=== PATIENT | female | born 1955 | race Caucasian/White ===

== ENCOUNTER 2024-04-20 09:02 | Outpatient (REF) | payer MEDICARE, SELFPAY ==
--- NOTE | ~2024-04-20 | XR_ITS ---
CLINICAL HISTORY: M25.561 - Pain in right knee 3 view right knee Comparison: None Findings: Status post right knee replacement. Appropriate alignment. No evidence of hardware failure. No fracture or dislocation. No significant loss of joint space, osteophytes, or erosions. No joint effusion. No radiopaque foreign body. IMPRESSION: 1. No acute findings. This document has been electronically signed by: Winter Cordova MD on 04/22/2024 13:19:31
--- NOTE | ~2024-04-20 | XR_ITS ---
CLINICAL HISTORY: M54.50 - Low back pain, unspecified 3 views lumbar spine Comparison: None Findings: Normal alignment. Status post L4 laminectomy, posterior metallic fusion extending from L4 through S1 and interbody fusion at L4-L5. No evidence of hardware failure. Grade 1 anterolisthesis of L3 on L4. There is a fracture of the right 12th rib, most likely chronic. No acute lumbar spine fracture. There are mild degenerative changes. There is mild dextrocurvature of the thoracolumbar junction. Multilevel degenerative disc disease, most pronounced at L1-L2. IMPRESSION: 1. There is straightening of lordosis. This may be postsurgical or could be secondary to muscle spasm. 2. Postsurgical changes at L4 through S1 as above. This document has been electronically signed by: Winter Cordova MD on 04/22/2024 13:41:04
== END 2024-04-20 09:03 | disposition home or self-care (01) ==
LOC: HO.HOSX 09:02
PROVIDERS: PCP Internal Medicine; Visit Provider Orthopaedic Surgery
DX: M25.561 Pain in right knee (principal); M54.50 Low back pain, unspecified; M79.604 Pain in right leg
CPT/HCPCS: 72100; 73562; 99212

== ENCOUNTER 2024-04-20 09:02 | Outpatient (AMB) | payer MEDICARE, SELFPAY ==
--- NOTE | 2024-04-20 09:04 | A.OFFVIS_ITS ---
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 She also reports intermittent discomfort in her right knee after undergoing right total knee replacement surgery in 2019. She denies any locking or giving way. The patient states that at times her right foot will ?go numb?. She also reports intermittent weakness in her right leg. She has done physical therapy which aggravated her symptoms. She has also tried Tylenol and anti-inflammatory medicines which gave her minimal relief. She did undergo low back surgery several years ago. Allergies adhesive tape Allergy (Unknown, Uncoded 12/18/15 00:00) Tree nuts Allergy (Unknown, Uncoded 12/18/15 00:00) Medication List - Last Reconciled 04/20/24 by Monroe Bonilla MD azathioprine mg PO colchicine mg PO duloxetine 120 mg PO DAILY gabapentin 100 mg PO QID PRN lorazepam 1 mg PO TID PRN ondansetron HCl mg PO oxycodone 5 mg PO Q6H PRN pilocarpine HCl mg PO DAILY progesterone micronized 100 mg PO DAILY valacyclovir mg PO 3XD zolpidem 10 mg PO BEDTIME PRN Physical Exam Vital Signs: BMI result Body Mass Index 35.4 Const Other: Well-nourished well-developed very friendly female awake alert and oriented x3 in no acute distress Back/Spine/Pelvis Other: Low back examination shows right-sided paraspinal muscle tenderness, pain with range of motion, positive straight leg raise test on the right at 70 degrees, 4/5 strength with testing of her right hip flexors and knee extensors when compared to 5/5 strength on her left side Extrem Other: Right knee examination shows that the surgical incision is well healed, no erythema, full active extension and flexion to 120 degrees, her patella tracks well Results Reviewed Results Reviewed: X-rays of the patient's right knee taken today show a total knee arthroplasty in good position with no signs of loosening, no acute bony abnormalities X-rays of the patient's lumbar spine taken today show surgical hardware extending from level L4 to S1 due to prior fusion, moderate degenerative disc disease cephalad to the fusion, no acute bony abnormalities Assessment & Plan Assessment & Plan (1) Right knee pain: Code(s): M25.561 - Pain in right knee Category: Medical (2) Low back pain: Code(s): M54.50 - Low back pain, unspecified Category: Medical (3) Low back pain radiating to right leg: Code(s): M54.50 - Low back pain, unspecified; M79.604 - Pain in right leg Category: Medical Plan Ms. Fletcher presents with progressively worsening low back pain which radiates down her right leg as well as associated right leg weakness possibly due to lumbar stenosis or a disc herniation. Thus, I will send the patient for an MRI of her lumbar spine for further evaluation. I will contact her by phone once the MRI is completed. She will call me prior to that time should her symptoms worsen any way. Feel free to call me at time should questions regarding her orthopedic management arise. I spent 22 minutes in reviewing the patient's records and imaging studies, seeing the patient and documenting in the medical record. Orders: Orders XR knee RT 3V Today M25.561 - Pain in right knee XR lumbar spine 2-3V Today M54.50 - Low back pain, unspecified MR lumbar spine wo con Today M54.50 - Low back pain, unspecified, M79.604 - Pain in right leg Coding Level of Care Code Est Pt Level 3 (10139) Complex EM visit Add On G2211 Diagnoses Right knee pain M25.561 Low back pain M54.50 Low back pain radiating to right leg M54.50; M79.604
[2024-04-20 09:06] VITALS: BMI 35.4
--- OUTSIDE RECORDS SUMMARY | 2024-04-20 09:53 | XMS_ITS | Patient Health Record ---
[facility] Address [address] [place] [address] Care Team Providers Care Home Therapy Teacher Name Role Phone Colt Reilly MD Primary Care Provider Ramiro Jenkins Unavailable [phone] Allergies Allergen (clinical drug ingredient) Drug/Non Drug Allergy documented on EMR Reaction Allergy Type Onset Date Status Adhesive Tape Rash Drug Allergy Act rocael Reason For Referral No Information Medications Medication SIG (Take, Route, Fr equency, Duration) Notes Start Date End Date Status Cymbalta Active Doxycycline Active Ambien Active Naltrexone Not-Takin g Protonix 40 MG 1 tablet Orally twice a day Not-Taking Keflex 500 MG 1 capsule Orally rudy ry 12 hrs for 7 days 03/14/2015 Not-Taking Lomotil Not-Taking Wellbutrin Active Immunizations Vaccine Route Administration Date Status Comme nts COVID-19 Pfizer BioNTech Vaccine Unknown 06/01/2020 Administered 1st 05/01/2020 Social History Tobacco Use: Social History Observation Description Date Details (start date - stop date) Never Smoker NA - NA Tobacco Use/Smoking Question Answer Notes Are you a: nonsmoker Alcohol Screen Question Answer Notes Did you have a drink containing alcohol in the p ast year? No Points 0 Interpretation Negative Tobacco use other than smoking: Question Answer Notes Are you an other tobacco user? No Plan Of Treatment Pending Test Test Name Order Date X ray : Foot, right 3V 04/02/2023 72079-Qrow Destruction, -04/11/2015 59538-Xwvr Destruction, -07/03/2020 53626-Aeqh Destruction, -08/08/2020 83275-Pste Destruction, -08/31/2020 02424-Iqky Destruction, -09/28/2020 13981 I&D ABSCESS- SIMPLE,SINGLE 024 55245- Biopsy of skin lesion 03/14/2015 25822- Biopsy of skin lesion 03/21/2015 Insurance Providers Payer Name Payer Address Payer Phone Subscriber Number Group Number Insured Name Patient Relationship to Insured Coverage Start Date Coverage End Date Medicare National [employer] [address] [place] [address] [id number] Sue Resendiz Self - patient is the insured [employer] [address] [place] [address] [phone] [id number] Sue Resendiz Self - patient is the insured Medical (General) History Medical History History ICD Code Anxiety Back,Hip,and Knee pain Broken bones Depression Kidney stones Sciatica Warts Measles Mumps Chicken pox Joint implants/screws Behcets Disease - autoimmune joint Surgical History Surgery Date(Month/Year) ileostomy 03/23/2014 hysterectomy 05/2002 gall bladder 06/1999 Shakeel 1977 bunionectomy 1975 mutiple cyst removals
--- OUTSIDE RECORDS SUMMARY | 2024-04-20 09:54 | XMS_ITS | Clinical Summary ---
Author Organization [address] [facility] Address [address] [place] [address] Phone Care Team Providers Care Chair Car Driver Name Role Phone Colt Reilly MD Primary Care Provider [phone] Allergies No known active allergies Medications zolpidem (AMBIEN) 10 mg tablet Take 1 tablet (10 mg total) by mouth at bedtime as needed. at bedtime for sleep 02/16/2024 Active progesterone (PROMETRIUM) 100 mg capsule Take 1 capsule (100 mg total) by mouth 1 (one) time each day. 12/30/2023 Active pilocarpine (SALAGEN) 7.5 mg tablet 01/22/2024 Active ondansetron (ZOFRAN) 8 mg tablet as needed 05/16/2011 Active multivitamin (multivitamin-i fara-minerals) tablet Take 1 tablet by mouth daily. Active LORazepam (ATIVAN) 1 mg tablet Take 1 tablet (1 mg total) by mouth 3 (three) times a day if needed. for anxiety 01/20/2024 Active gabapentin (NEURONTIN) 100 mg capsule Take 1 capsule (100 mg total) by mouth 4 (four) times a day if needed. 01/21/2024 Active DULoxetine (CYMBALTA) [address] capsule Take 2 capsules (120 mg total) by mouth 1 (one) time each day. 01/22/2024 Active colchicine (COLCRYS) 0.6 mg tablet 01/15/2024 Active apremilast (Otezla) 30 mg tablet Take 30 mg by mouth. 02/05/2024 Active acetaminophen (TYLENOL) 325 mg tablet TAKE 1 TO 2 TABLETS EVERY 6 HOURS NEEDED.Take PRN pain 04/04/2014 Active Active Problems Problem Noted Date Diagnosed Date Finding of above normal blood pressure Severe obesity (BMI 35.0-39.9) with comorbidity 02/23/2024 Carpal tunnel syndrome of left wrist 02/23/2024 Trigger ring finger of left hand 02/23/2024 Idiopathic acute pancreatitis without infection or necrosis 01/05/2024 Status post ileostomy 03/23/2023 Supraventricular tachycardia 03/23/2023 Primary osteoarthritis involving multiple joints 11/07/2022 Sicca syndrome 11/07/2022 Essential hypertension 05/11/2020 Depression 02/27/2020 Perforated viscus 01/28/2020 Overview (02/23/2024): Hx of total colectomy with end ileostomy, s/p rectal stump perforation following flex sig on 01/27/20 for rectal stump decompression. 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; chronic mucosal ulceration tx'd with longstanding azathioprine Colostomy dysfunction 03/20/2014 Intestinal obstruction 02/22/2014 Overview (02/23/2024): Unspecified Intestinal Obstruction Encounters Date Type Department Care Team Description 03/15/2024 3:45 PM EST Office Visit Orthopedic Surgery [address] [address] Kathe King PA Arthritis of carpometacarpal (CMC) joint of right thumb (Primary Dx) 02/23/2024 2:15 PM EST Consult Orthopedic Surgery [address] [address] Rosalina Tom MD Trigger ring finger of left hand (Primary Dx); Carpal tunnel syndrome of left wrist from Last 3 Months Immunizations Name Administration Dates Next Due Pfizer SARS-CoV-2 COVID-19, mRNA, LNP-S, preservative free 02/19/2021,05/22/2020,05/01/2020 Surgical History Surgery Date Site/Laterality Comments HYSTERECTOMY 2009 PROCEDURE: HISTORICAL HYSTERECTOMY TOTAL KNEE ARTHROPLASTY 2011 PROCEDURE: NC ARTHRP KNE CONDYLE&PLATU MEDIAL&LAT COMPARTMENTS CHOLECYSTECTOMY 2005 PROCEDURE: HISTORICAL CHOLECYSTECTOMY APPENDECTOMY 1964 PROCEDURE: HISTORICAL APPENDECTOMY BACK SURGERY 2009 PROCEDURE: HISTORICAL BACK SURGERY; COMMENT: lumbar spinal fusion, L4-L5 OTHER SURGICAL HISTORY PROCEDURE: ---- OTHER ----; COMMENT: ileostomy x 4 BYPASS GRAFT PROCEDURE: NC AMPUTATION TOE METATARSOPHALANGEAL JOINT Medical History Medical History Date Comments Anxiety 02/27/2020 DX:Anxiety Depression 02/27/2020 DX:Depression Behcet's disease ([facility]/HCC) 02/27/2020 DX:Be hcet's disease ([facility]) Insomnia 02/27/2020 DX:Insomnia SVT (supraventricular tachyc ardia) ([facility]) 02/27/2020 DX:SVT (supraventricular tachycardia) ([facility]) Palpitations 02/27/2020 DX:Palpitations Dyspnea 02/27/2020 DX:Dyspnea Family History Medical History Relation Name Comments Hypertension Brother Coronary artery disease Father late r in life Diabetes Father Hypertension Mother Alcohol abuse Sister Hypertension Sister Relation Name Status Comments Brother Father Mother Sister Social History Tobacco Use Types Packs/Day Years Used Date Smoking Tobacco: Never Smokeless Tobacco: Never Alcohol Use Standard Drinks/Week Comments No 0 (1 standard drink = 0.6 oz pur e alcohol) Comments Unknown Sex and Gender Information Value Date Recorded Sex Assigned at Female 02/22/2024 8:21 PM EST Legal Sex Female 10:32 AM EST Gender Identity Female 02/22/2024 8:21 PM EST Sexual Orientation Not on file Obstetrics History Last Filed Vital Signs Vital Sign Reading Time Taken Comments Blood Pressure 162/90 12/23/2021 12:59 PM EST Si tting R Arm Pulse 80 12/23/2021 12:59 PM EST Temperature - - Respiratory Rate - - Oxygen Saturation - - Inhaled Oxygen Concentration - - Weight 86.2 kg (190 lb) 02/23/2024 2:11 PM EST Height 160 cm (5' 3 ) 02/23/2024 2:11 PM EST Body Mass Index 33.66 02/23/2024 2:11 PM EST Plan of Treatment Upcoming Encounters Date Type Department Care Team (Late st Contact Info) Description 05/23/2024 11:45 AM EDT Office Visit Orthopedic Surgery - [place] [address] [place] [address] Rosalina Tom MD [address] [facility] [address] [place] [address] Health Maintenance Due Date Last Done Comments Breast Cancer Screening 1955 DTaP,Tdap,and Td Vaccines (1 - Tdap) 1973 Pneumococcal Vaccine: 50+ Years (1 of 1 - PCV) 2004 Zoster Vaccines (1 of 2) 2004 RSV Immunization Patients 60+ Years Old (1 - Risk 60-74 years 1-dose series) 2014 Colorectal Cancer Screening: Colonoscopy 01/14/2022 Depression Screening 01/14/2022 Falls Risk Assessment 01/14/2022 Osteoporosis Screening (Bone Density Screening) 01/14/2022 Social Influencers of Health Screening 01/14/2022 Medicare Annual Wellness Visit 03/28/2023 03/28/2022 COVID-19 Vaccine ( season) 2023 03/02/2023, 11/11/2021, 02/19/2021, Additional history exists Hypertension/CHF/CAD Annual BMP Blood Test 03/08/2025 03/08/2024, 01/21/2024, 01/06/2024, Additional history exists Cholesterol Screening (Lipid Panel) 01/04/2029 01/05/2024 Hepatitis C Screening Completed 11/05/2022 Influenza Vaccine Completed 12/31/2023, , 12/02/2021, Additional history exists HIB Vaccines Aged Out No longer eligi ble based on patient's age to complete this topic HPV Vaccines Aged Out No longer eligi ble based on patient's age to complete this topic Hepatitis A Vaccines Aged Out No long er eligible based on patient's age to complete this topic Hepatitis B Vaccines Aged Out No long er eligible based on patient's age to complete this topic IPV Vaccines Aged Out No longer eligi ble based on patient's age to complete this topic MMR Vaccines Aged Out No longer eligi ble based on patient's age to complete this topic Meningococcal ACWY Vaccine Aged Out N o longer eligible based on patient's age to complete this topic Meningococcal B Vacine Aged Out No lo nger eligible based on patient's age to complete this topic RSV Immunization Patients Under 20 months Aged Out No longer eligible based on patient's age to complete this topic Varicella Vaccines Aged Out No longer eligible based on patient's age to complete this topic Procedures Procedure Name Priority Date/Time Associated Diagnosis Comments NC ARTHROCENTESIS/ASPI RATION/INJECTION SMALL JOINT/BURSA WO U/S GUIDANCE Routine 03/15/2024 3:45 PM EST Arthritis of carpometacarpal (CMC) joint of right thumb NC INJECTION SINGLE TENDON SHEATH OR LIGAMENT APONEUROSIS Routine 02/23/2024 2:15 PM EST Trigger ring finger of left hand from Last 3 Months Results * NC ARTHROCENTESIS/ASPIRATION/INJECTION SMALL JOINT/BURSA WO U/S GUIDANCE (03/15/2024 3:45 PM EST) Narrative Kathe King PA - 03/15/2024 3:45 PM EST ERNA Harris ? 03/15/2024 ??4:18 PM Hand / UE Inj/Asp: R thumb CMC for osteoarthritis Indications: pain Details: 25 G needle, dorsal approach Medications: 40 mg triamcinolone acetonide 40 mg/mL; 0.5 mL lidocaine 1 % Informed Consent: ??Laterality: ??Right ??Relevant images/test results available and reviewed: yes ?Health status cleared: ??Yes ??Procedure/treatment, purpose, treatment alternatives, risks/potential complications and benefits explained: yes ?Risk/complications/benefits details: ??Risks of infection, thinning of the skin, skin discoloration discussed. ??Discussed the possibility of increased pain, mild redness and swelling at injection site. ??Discussed uncommon side effect of facial flushing after cortisone injection. ?? Patient may use ice, Tylenol or ibuprofen if they can take it. ??Benefits pain management ??Patient questions answered: yes ?Patient agrees, verbalizes understanding, and wants to proceed: yes ?Consent given by: ??Patient ??Informed consent discussion completed by Physician/HILDA with patient: ?? Verbal ??Pre-procedure timeout performed: yes ?? us Kathe UMANZOR IN CLINIC/BEDSIDE ORDERABLES Final Result * NC INJECTION SINGLE TENDON SHEATH OR LIGAMENT APONEUROSIS (02/23/2024 2:15 PM EST) Rosalina Kotahri MD - 02/23/2024 2:15 PM EST Rosalina Tom MD ? 02/23/2024 ??5:50 PM Hand / UE Inj/Asp: L ring A1 for trigger finger Indications: pain Details: 27 G needle, volar approach Medications: 40 mg triamcinolone acetonide 40 mg/mL Outcome: tolerated well, no immediate complications Site was prepped in standard fashion using alcohol swab, sterile technique was used to perform the injection, the patient tolerated the procedure well and a band-aid dressing was applied Informed Consent: ??Laterality: ??Left ??Relevant images/test results available and reviewed: yes ?Health status cleared: ??Yes ??Procedure/treatment, purpose, treatment alternatives, risks/potential complications and benefits explained: yes ?Risk/complications/benefits details: ??Risk/complications/benefits details: ??Risks and benefits of corticosteroid injection were discussed, including risk of pain, bleeding, infection, tissue attenuation, tendon rupture, changes in skin color, and injury to surrounding structures such as arteries, veins and nerves. We also discussed the patient may develop worsening pain for a few days before having improvement in their symptoms. ??Patient questions answered: yes ?Patient agrees, verbalizes understanding, and wants to proceed: yes ?Consent given by: ??Patient ??Informed consent discussion completed by Physician/HILDA with patient: ?? Verbal ??Pre-procedure timeout performed: yes ?? us Rosalina Tom MD IN CLINIC/BEDSIDE ORDERABLES Final Result from Last 3 Months Insurance MEDICARE [facility] Care Teams Chair Car Driver Relationship Specialty Start Date End Date Colt Reilly MD [address] [place] [address] PCP - General Internal Medicine 02/27/20
--- OUTSIDE RECORDS SUMMARY | 2024-04-20 09:54 | XMS_ITS ---
Author Organization [facility] Address [address] [place] [address] Care Team Providers Care Cleaner Carpet And Upholstery Name Role Phone Colt Reilly MD Primary Care Provider Unava ilRamiro Zurita Unavailable [phone] REASON FOR VISIT Freibergs disease Encounters Encounter Location Date Provider Diagnosis [facility] [address] [place] [address] 04/02/2023 Ramiro Allen Plan Of Treatment No Information Progress Notes * Sue ADAMS MDOB:[birth year] (67 yo F)Acc No.[id number]:04/02/2023 Patient:?Sue Adams :1955???Age:67 Y???Sex:Female Address:[address] [place] [address], [id number] * true * Date:? Generated for Printi ng/Fadeang/eTransmitting on:?04/20/2024 09:54 AM EST
--- OUTSIDE RECORDS SUMMARY | 2024-04-20 09:54 | XMS_ITS ---
[facility] Address [address] [place] [address] Care Team Providers Care Motel Manager Name Role Phone Colt Reilly MD Primary Care Provider Ramiro Jenkins Unavailable [phone] Allergies Allergen (clinical drug ingredient) Drug/Non Drug Allergy documented on EMR Reaction Allergy Type Onset Date Status Adhesive Tape Rash Drug Allergy Act rocael REASON FOR VISIT Painful Toe(s), Possible Infection Medications Medication SIG (Take, Route, Fr equency, Duration) Notes Start Date End Date Status Cymbalta Active Doxycycline Active Naltrexone Not-Takin g Keflex 500 MG 1 capsule Orally rudy ry 12 hrs for 7 days 03/14/2015 Not-Taking Lomotil Not-Taking Ambien Active Protonix 40 MG 1 tablet Orally twice a day Not-Taking Wellbutrin Active Social History Tobacco Use: Social History Observation [...] Are you an other tobacco user? No Vital Signs Height 5ft 4in in 04/02/2023 Weight 185 lbs 04/02/2023 BMI 31.75 kg/m2 04/02/2023 Procedures Procedure Date Ordered Date Performed Result Body Sit e 73748 I&D ABSCESS- SIMPLE,SINGLE 04/02/2023 N/A Encounters Encounter Location Date Provider Diagnosis [facility] [address] [place] [address] 04/02/2023 Ramiro Allen Pain in right toe(s) M79.674 ; Other hammer toe(s) (acquired), right foot M20.41 ; Arthritis of joint of lesser toe, right M19.071 and Abscess of toe, right L02.611 Assessments Encounter Date Diagnosis (ICD Code) Assessment Notes Treatment Notes Treatment Clinical Notes Section Notes 04/02/2023 Pain in right toe(s) (ICD-10 - M79.674) 04/02/2023 Other hammer toe(s) (acquired), right foot (ICD-10 - M20.41) 04/02/2023 Arthritis of joint of lesser toe, right (ICD-10 - M19.071) 04/02/2023 Abscess of toe, right (ICD-10 - L02.611) Patient Educated with: WOUND CARE INSTRUCTIONS.p df (WOUND CARE INSTRUCTIONS.p df) Plan Of Treatment Treatment Notes Assessment Notes Abscess of toe, right Patient Educated w ith: WOUND CARE INSTRUCTIONS.pdf (WOUND CARE INSTRUCTIONS.pdf) Pending Test Test Name Order Date X ray : Foot, right 3V 04/02/2023 79516 I&D ABSCESS- SIMPLE,SINGLE 024 Next Appt Details Follow Up: prn, Reason: Procedure Notes * Category Sub-Category Detail Notes I&D nail abscess Location Lateral nail levon rder , T6 Procedure Performed incision a nd drainage of Single Nail Abscess with use of sterile nail nipper/316 blade. Approximately ( 0.1 ) cc purulent fluid material was drained. The infected devitalized soft tissue was curettaged to healthy bleeding bed. Any affected nail portion was removed to the eponychium . Any evidence of granuloma was also removed at this time. No underlying bone was visualized. There was minimal bleeding as hemostasis was achieved through the temporary use of either a digital tournaquet or the aforementioned local with epinephrine. An application of sterile Bacitracin dressing was performed. Local wound care instructions were discussed and dispensed. Recommended Tylenol or Motrin for pain/discomfort (72600) Type Single, Abscess Anesthesia 3cc of 1 percent Lid ocaine Plain local anesthesic utilizing aseptic technique Progress Notes * Sue ADAMS MDOB:[birth year] (68 yo F)Acc No.[id number]:04/02/2023 Progress Note Patient:?Sue ADAMS Provider:?Ramiro Allen DPM :1955???Age:67 Y???Sex:Female D ate:04/02/2023 Address:[address] [place] [address] [place], [id number] Pcp:Colt Reilly MD Subjective: * Chief Complaints: * ???Painful Toe(s)Possible In fection * HPI: ???Toe pain:?Nature:?tenderness.?Location:?Right foot.?Duration:?several days.?Course:?worse.?Aggravated by:?any pressure, shoes.?Treatments:?rest/alter normal daily activity, change in shoes.? * ROS:?General/Constitutional:?Nausea?denies.?Vomiting?denies.?Hunger Thirst?admits.?Loss appetite?admits.?Chills?denies.?Fatigue?admits.?Fever?denies.?Night Sweats?admits.?Unexplained weight loss?denies.?Ophthalmologic:?Blurred vision?denies.?Red eye?denies.?HEENTM:?Dentures?denies.?Dizziness?denies.?Glasses/contacts?admits.?Retinopathy?de nies.?Blurred/double vision?admits.?TMJ?denies.?Discharge/drainage?denies.?Implants?admits.?Hard of hearing denies.?Difficulty chewing/swallowing/speaking?denies.?Nose bleeds?denies.?Sore mouth?denies.?Swollen glands?denies.?Respiratory:?On Oxygen?denies.?Pneumonia/pleurisy?denies.?Bronchitis?denies.?Emphysema?denies.?C oughing?denies.?Cough blood?denies.?Shortness of breath?denies.?Wheezing?denies.?Cardiovascular:?Pacemaker?denies.?MVP?denies.?WPW?denies.?CHF?denies.?Heart attack?denies.?Septal defect?denies.?Rapid beat?denies.?Chest pain ?denies.?Atrial Fib.?denies.?Murmur/Palpitations?denies.?Gastrointestinal:?Hemorrhoids?denies.?Stomach/Abdominal pain?admits.?Dark blood stool?denies.?Irritable bowel ?admits.?Constipation?denies.?Diarrhea?denies.?Vomiting?denies.?Hematology:?Swelling?denies.?Bruising?denies.?Bleeding problem?denies.?Genitourinary:?Blood urine?denies.?Frequent/Painfu/urination/bladder control?denies.?Kidney stones?denies.?Infection (UTI)?denies.?Nephropathy?denies.?Musculoskeletal:?Hammertoes?admits.?Bunions?denies.?Scoliosis/kyphosis?denies.?Muscle cramps / walking?denies.?Generalized aches and pains?denies.?Weakness?denies.?Integ.:?[place]ron?denies.?Scars?admits.?Corns/calluses?admits.?Ingrown nails?admits.?Painful nails?admits.?Rashes?denies.?Neurologic:?Difficulty sleeping?admits.?Bipolar?denies.?Brain disorder?denies.?Balance trouble?denies.?Confusion?denies.?Fainting/blackouts?denies.?Headache?denies.?Tr emors?denies.? * Medical History:? * Surgical History:?ileostomy 03/23/2014hysterectomy 05/2002gall bladder 06/1999Fribergs 1978bunionectomy 1975mutiple cyst removals * Hospitalization/Major Diagno stic Procedure:?No Hospitalization History. * Family History:?Mother: dece ased, kidney/liver disease, diagnosed with Family history of arthritis, Unspecified essential hypertension.?Father: , diagnosed with Family history of arthritis, Diabetic - NIDDM, Unspecified essential hypertension, Unspecified heart disease.?Daughter(s): alive.?Son(s): .?Maternal Grand Mother: , stroke.?Siblings: alive, cancer, high blood pressure.?Spouse: alive.?1 son(s) , 1 daughter(s) . .? * Social History:?Tobacco Use:?Tobacco Use/Smoking?Are you a:?nonsmoker ?Tobacco use other than smoking?Are you an other tobacco user??No ???Drugs/Alcohol:?Drugs?Have you used drugs other than those for medical reasons in the past 12 months??No ?Alcohol Screen?Did you have a drink containing alcohol in the past year??No ?Points?0 ?Interpretation?Negative ???Miscellaneous:?Caffeine: no. ?Children: yes. ?Exercise: no. ?Marital status: . ?Occupation: Disabled. * Medications:?TakingAmbien Cy mbalta Doxycycline Wellbutrin Taking Ambien Taking Cymbalta Taking Doxycycline Taking Wellbutrin Not-Taking/PRNKeflex 500 MG Capsule 1 capsule Orally every 12 hrs Lomotil Naltrexone Protonix 40 MG Tablet Delayed Release 1 tablet Orally twice a day Medication List reviewed and reconciled with the patientNot-Taking/PRN Keflex 500 MG Capsule 1 capsule Orally every 12 hrs Not-Taking/PRN Lomotil Not-Taking/PRN Naltrexone Not-Taking/PRN Protonix 40 MG Tablet Delayed Release 1 tablet Orally twice a day Medication List reviewed and reconciled with the patient * Allergies:?Adhesive Tape: Ra wilcox[Allergies Verified] Objective: * Vitals:?Ht: 5ft 4in, Wt:185, BMI:31.75, Shoe size: 8, Ht-cm: 162.56 cm, Wt-k.91 kg. * Examination: ???Abscess/infected nail: ?INSPECTION?Reveals nail incurvation, pain on palpation, groove laceration, inflammation, malodor, localized cellulitis, and purulent abscess with pre- operative size of approximately ( 1-2 ) mm square without exposed bone , Lateral nail border , T6.?Orthopedic: ?MUSCLE STRENGTH:?5/5 all groups in a symmetrical fashion, B/L.?DIGITAL DEFORMITIES:?Digital contracture, PIPJ, T6, reducible with WB, or to push-up test, no over, nor underlapping , Reveals pain/swelling/redness/enlargement of PIPJ, T6.?FOOTWEAR:? shoe gear properties exacerbate patients foot/toe deformity.?X-Rays - IMAGING REPORT: ?Clinical Indication(s):? Evaluate Biomechanical Deformity.?Views:? 3 views of Foot, AP, LO, MO, RIGHT.?Findings:? normal bone and soft tissue density consistent for patients age and sex.?Digits:? show asymmetrical joint space narrowing at the PIPJ consistent with clinical finding of hammertoe deformity.?Fracture:? Negative fractures identified.?Dermatologic: ?SKIN FINDINGS:?Skin exam reveals normal texture, elasticity, and turgor. There are no masses. The interspaces are clear.?Vascular: ?DP PULSES (B):?3/4, B/L.?PT PULSES (B):?3/4, B/L.?CAPILLARY FILL TIME:?immediate, all digits, B/L.?TROPHIC CONDITION-TEXTURE/ELASTICITY/TURGOR/HAIR GROWTH (B):?normal, B/L.?TEMPERTURE GRADIENT (C):?warm to cool, proximal to distal, B/L.?PIGMENTATION:?normal, B/L.?EDEMA (C):?absent, B/L.?Neuroma Pain: ?PALPATION:?No interspace pain noted on palpation.?Neurological: ?SENSORY:?Neurological exam reveals intact sensorium, pain sensation normal, vibration sensation intact, pinprick sensation is normal in the lower extremities, Pt denies, anesthesia, burning, paresthesia, tingling, B/L.?DEEP TENDON REFLEXES:?Achilles, 2/4, B/L.?General Examination: ?GENERAL APPEARANCE:?Reveals a pleasant, alert, well nourished, well- developed, well hydrated individual, who demonstrates proper attention to hygiene/body habitus, and is in no acute distress, Pt serves as own historian for office visit today , Denies fever, chills, malaise, lymphadenopathy.?ORIENTED:?person, place, and time.? Assessment: * Assessment: 1.?Pain in right toe(s) - M7 9.674 (Primary)???2.?Other hammer toe(s) (acquired), right foot - M20.41???Specify :Acute problem, Complicated w/ Multiple Tx Options(4),Dx New problem, Prognosis Uncertain (4)???3.?Arthritis of joint of lesser toe, right - M19.071???4.?Abscess of toe, right - L02.611??? Plan: * Treatment: 2.?Abscess of toe, right?Procedure: 60591 I&D ABSCESS- SIMPLE,SINGLE Notes: Patient Educated with: WOUND CARE INSTRUCTIONS.pdf (WOUND CARE INSTRUCTIONS.pdf)?? * Procedures:?I&D nail abscess:?Type?Single, Abscess.?Anesthesia?3cc of 1 percent Lidocaine Plain local anesthesic utilizing aseptic technique.?Location?Lateral nail border?,?T6.?Procedure?Performed incision and drainage of Single Nail Abscess with use of sterile nail nipper/316 blade. Approximately ( 0.1 ) cc purulent fluid material was drained. The infected devitalized soft tissue was curettaged to healthy bleeding bed. Any affected nail portion was removed to the eponychium . Any evidence of granuloma was also removed at this time. No underlying bone was visualized. There was minimal bleeding as hemostasis was achieved through the temporary use of either a digital tournaquet or the aforementioned local with epinephrine. An application of sterile Bacitracin dressing was performed. Local wound care instructions were discussed and dispensed. Recommended Tylenol or Motrin for pain/discomfort (65051).? * Procedure Codes:?94283 DRAIN AGE OF SKIN ABSCESS, Modifiers: T6 07532 X-RAY EXAM OF RIGHT FOOT 3V, Modifiers: 26 , RT * Preventive Medicine:? ??Counseling:?Discussion:?-14: Office or other outpatient visit for the evaluation and management of an established patient, which required a medically appropriate history and/or examination and MODERATE level of DECISION MAKING for: 1 OR MORE CHRONIC PROBLEM(S) THATS WORSENING, 2 STABLE CHRONIC PROBLEMS, A NEWLY DIAGNOSED PROBLEM WITH UNCERTAIN PROGNOSIS, AN ACUTE COMPLICATED INJURY WITH MULTIPLE TREATMENT OPTIONS, OR AN ACUTE PROBLEM WITH ACCOMPANYING SYSTEMIC SYMPTOMS, THAT POSE(S) A MODERATE RISK OF MORBIDITY. THIS CONDITION MAY ALSO INCLUDE RX DRUG MANAGEMENT, OR A DECISON FOR MINOR SURGERY. The visit on the day of the encounter encompassed interpreting the data and educating the patient as to the nature of their condition, treatment options available according to their individual PMH, meds, allergies, and overall health/living conditions, as well as any potential risks or complications that may occur from a failure to adhere to, and participate in, the recommended course of therapy. The discussion included a complete verbal, and/or written explanation of the examination results, any x-rays taken, the proposed diagnosis, and outline of the treatment plan. A schedule for future care needs was also explained. The patient verbalized an understanding of the instructions at this time and agreed to be an active participant in their treatment. If the patient should think of any questions or concerns after the visit, I have encouraged the patient to call the office.?Digital Surgery:?Digital surgery was discussed with the patient, including the risks of surgery(below), vs not having surgery (persistent pain, deformity, risk for skin ulceration/infection, loss of toe), the potential surg complications, the anesthesia, and the usual post-op course. No guarentees were given. We discussed the potential procedure complications including, but not limited to: pain, swelling, bleeding, scarring, numbness, infection, delayed/non healing, floppy/unstable/shorthened toe, recurrence, failure of the procedure, overcorrection leading to plantarflexed/downward positioned toe, recurrence, need for further surgery, as well as the possibility for loss of the toe itself. We discussed the use of local anesthesia, and the usual post-op course for healing. No guarentees were given. The patient verbally indicated a full understanding of the above conversation, and any other of their questions were answered to their satisfaction. Alternatives to the procedure were also discussed, including conservative care. I also discussed the usual post-operative course and gave no guarantees regarding outcome.?Digital Treatment:?HT- I explained to the patient the possible etiologies of Hammertoes, including genetics/foot type/shoegear/activity level/exercise routine and the risks/benefits of all the different treatment options for their pain including: No treatment at all, Rest, Ice, New/supportive/wider/deeper Shoegear, Digital Padding/Strapping/Taping/Bracing/Gel protective sleeves, Foot/Ankle AFO Bracing, Stretching exercises, Deep Tissue Massage, Arch support/shoe inserts with splay metatarsal padding, and Custom orthoses. I insisted that any digital devices be removed daily and not worn overnight for safety. The patient is to carefully examine the toes daily for any skin irritation while using any splinting or padding device. The advantages and disadvantages of each option were discussed and the patients questions re: shoegear, padding, custom vs prefabricated inserts, activity level, and consistency in home treatment regimens for optimal success were answered to their verbally confirmed satisfaction.?Shoe Gear Counseling:?The patient and I reviewed the types of shoes they should be wearing. My recommendation included obtaining a well-fitted shoe with a good supportive, non-foldable nor twistable sole, plenty of toe/room for the forefoot, and proper arch support. Based on todays examination, I recommended the patient look for new shoes, by having their feet professionally measured. We discussed that generally the best time of the day for a shoe fitting is the afternoon. Different shoes types and brands to best match the patients occupation and vocation were discussed. Specific brand selection will be up to the patient, their individual foot condition/deformities, and fit. The patient and I reviewed the standard new shoe break in period by wearing them for a few hours a day while checking for redness or sores as wear time is increased. The patient verbally confirmed to understanding the information discussed.? ??Screening/Special Tests:?Fall Risk?Screening:?No falls in the past year ?FALLS: Screening for Future Fall Risk?Have you had any falls with injury in the past year??No * Follow Up:?prn * Images: * Sign off status: Completed true * Provider:?Ramiro Allen DPM Date:?2023 Generated for Kaye hou/Andre/Alejandro on:?04/20/2024 09:54 AM EST History and Physical Notes * HPI (History of Present Illness) Category Sub-Category Detail Notes Category Not es Toe pain Nature: tenderness Location: Right foot Duration: several days Course: worse Aggravated by: any pressure, shoes Treatments: rest/alter normal da abdelrahman activity, change in shoes Examination Category Sub-Category Detail Notes Category Not es Neuroma Pain PALPATION: No interspace pain noted on palpation Neurological SENSORY: Neurological exa m reveals intact sensorium, pain sensation normal, vibration sensation intact, pinprick sensation is normal in the lower extremities, Pt denies, anesthesia, burning, paresthesia, tingling, B/L DEEP TENDON REFLEXES: Achilles, 2/4, B/L Dermatologic SKIN FINDINGS: Skin exam reveal s normal texture, elasticity, and turgor. There are no masses. The interspaces are clear Orthopedic FOOTWEAR: shoe gear proper ties exacerbate patients foot/toe deformity DIGITAL DEFORMITIES: Digital contracture , PIPJ, T6, reducible with WB, or to push-up test, no over, nor underlapping , Reveals pain/swelling/redness/enlargement of PIPJ, T6 MUSCLE STRENGTH: 5/5 all groups in a symmetrical fashion, B/L General Examination GENERAL APPEARANCE: Reveals a pleasant, alert, well nourished, well-developed, well hydrated individual, who demonstrates proper attention to hygiene/body habitus, and is in no acute distress, Pt serves as own historian for office visit today , Denies fever, chills, malaise, lymphadenopathy ORIENTED: person, place, and t rebecca Vascular DP PULSES (B): 3/4, B/L PT PULSES (B): 3/4, B/L CAPILLARY FILL TIME: immediate, all digi ts, B/L TEMPERTURE GRADIENT (C): warm to cool, p roximal to distal, B/L TROPHIC CONDITION-TEXTURE/ELASTICITY/TURGOR/HAIR GROWTH (B): normal, B/L EDEMA (C): absent, B/L PIGMENTATION: normal, B/L Abscess/infected nail INSPECTION Reveals na il incurvation, pain on palpation, groove laceration, inflammation, malodor, localized cellulitis, and purulent abscess with pre-operative size of approximately ( 1-2 ) mm square without exposed bone , Lateral nail border , T6 X-Rays - IMAGING REPORT Findings: normal b one and soft tissue density consistent for patients age and sex Fracture: Negative fractures i dentified Digits: show asymmetrical talya int space narrowing at the PIPJ consistent with clinical finding of hammertoe deformity Views: 3 views of Foot, AP, LO, MO, RIGHT Clinical Indication(s): Evaluate Biomech anical Deformity
--- OUTSIDE RECORDS SUMMARY | 2024-04-20 09:54 | XMS_ITS | Clinical Summary ---
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 Other Tree Nuts. Cloth Surgical Tape. Medications Medication Sig Dispensed Refills Start Date End Date Status amLODIPine (NORVASC) tablet 5 mg TK 1 T PO ONCE D FOR BLOOD PRESSURE 1 01/06/2017 Active buPROPion (WELLBUTRIN SR) 150 MG 12 hr tablet TK 1 T PO BID 2 12/08/2016 Active DEXILANT 60 MG capsule TK ONE C PO D 2 01/12/2017 Active duloxetine (CYMBALTA) DR capsule 60 mg TK 2 CS PO ONCE QD 2 01/06/2017 Act rocael hydrocortisone (CORTEF) tablet 10 mg TK 1 T PO BID 3 12/08/2016 Active hydrocortisone (CORTEF) tablet 5 mg TK 1 T PO BID 3 11/15/2016 Active LORazepam (ATIVAN) 1 MG tablet TK 1 T PO TID PRN 2 11/15/2016 Active tamsulosin (FLOMAX) 0.4 MG CAPS TAKE 1 CAPSULE BY MOUTH EVERY DAY 1/2 HOUR AFTER DINNER 0 10/27/2016 Active valACYclovir (VALTREX) 1000 MG tablet TK 1 T PO TID 3 11/17/2016 Active zolpidem (AMBIEN) 10 MG tablet TK 1 T PO QHS PRN 2 01/13/2017 Activ e traZODone (DESYREL) 50 MG tablet TK 2 TS PO HS 3 02/25/2017 Active warfarin (COUMADIN) 1 MG tablet Take 9 tabs daily or as directed by physician 140 tablet 0 01/01/2018 Active celecoxib (CELEBREX) 200 MG capsule Take 1 capsule (200 mg total) by mouth daily. 30 capsule 2 01/26/2018 Active gabapentin (NEURONTIN) 100 MG capsule TK 2 CS PO TID WITH MEALS 0 12/27/2017 Active pantoprazole (PROTONIX) 40 MG tablet 0 02/23/2009 Active buPROPion (WELLBUTRIN) 100 MG tablet TK 2 TS PO QAM AND TK 1 T PO QPM 5 09/01/2018 Active loperamide (IMODIUM) 2 MG capsule Take 2 mg by mouth 4 (four) times a day as needed. 0 08/27/2015 Active diphenoxylate-atro pine (LOMOTIL) 2.5-0.025 MG per tablet Take 1 tablet by mouth 3 (three) times a day as needed. 0 05/19/2018 Active amoxicillin (AMOXIL) 500 MG capsule Take 4 tabs 1 hour prior to dental appointmentq 20 capsule 0 12/01/2018 Active ASPIRIN LOW DOSE 81 MG EC tablet TK 1 T PO D 0 09/29/2019 Active atorvastatin (LIPITOR) tablet 20 mg TK 1 T PO D 0 10/20/2019 Active azaTHIOprine (IMURAN) 50 MG tablet TK 2 TS PO QD 0 12/03/2019 Active metoprolol succinate (TOPROL-XL) 24 hr tablet 50 mg TK 1 T PO D 0 11/20/2019 Active Active Problems Problem Noted Date Diagnosed Date Postop check 01/01/2018 Arthritis of right knee 04/30/2017 It band syndrome, right 01/22/2017 Family History Medical History Relation Name Comments Heart disease Father Cancer Sister Hypertension Sister Relation Name Status Comments Father Sister Social History Tobacco Use Types Packs/Day Years Used Date Smoking Tobacco: Never Smokeless Tobacco: Never Alcohol Use Standard Drinks/Week Comments No 0 (1 standard drink = 0.6 oz pur e alcohol) Sex and Gender Information Value Date Recorded Sex Assigned at Not on file Gender Identity Not on file Sexual Orientation Not on file Job Start Date Occupation Industry Not on file Not on file Not on file Last Filed Vital Signs Vital Sign Reading Time Taken Comments Blood Pressure - - Pulse - - Temperature - - Respiratory Rate - - Oxygen Saturation - - Inhaled Oxygen Concentration - - Weight 94.3 kg (208 lb) 09/22/2018 11:02 AM EDT Height 160 cm (5' 3 ) 09/22/2018 11:02 AM EDT Body Mass Index 36.85 09/22/2018 11:02 AM EDT Plan of Treatment Health Maintenance Due Date Last Done Comments Hepatitis C Screening 1955 COVID-19 Vaccine (#1) 11/28/1959 Pneumococcal Vaccine (1 of 2 - PCV) 1960 Depression Screening 1966 BMI Counseling 1972 Preventative Health Evaluation 1972 DTap / Tdap / Td (1 - Tdap) 1973 Shingrix-Zoster Vaccine (1 of 2) 1973 Colon Cancer Screening (Colonoscopy) 11/28/1999 Breast Cancer Screening (Mammogram) 2004 RSV Adult > 60+ Yrs or Pregn ant (1 - Risk 60-74 years 1-dose series) 2014 Fall Risk Assessment 11/28/2019 Osteoporosis Screening (DEXA Scan) 11/28/2019 Influenza Vaccine (#1) 2023 Hepatitis B Vaccines Aged Out No long er eligible based on patient's age to complete this topic RSV Ped < 20 months Aged Out No longe r eligible based on patient's age to complete this topic Care Teams [employer] Fishing Crew Member Relationship Specialty Start Date End Date Colt Carrera MD [address] [facility] [address] [place] [address] PCP - General E/M Engineer 10/02/16
--- OUTSIDE RECORDS SUMMARY | 2024-04-20 09:54 | XMS_ITS | Data Portability ---
Author Organization [facility], [address] Address [address] [place] [address] Care Team Providers Care Learning Manager Name Role Phone [facility] Primary Care Provide r Assessment No assessment recorded. Plan of Treatment Reminders Order Date Submit Date Provider Last Modified By Organization Details Last Modified Time Details Appointments None recorded. Lab None recorded. Referral None recorded. Procedures None recorded. Surgeries None recorded. Imaging None recorded. Medication Orders valacyclovi r 1 gram tablet 2022 023 [id number], [address], [place], [id number], 3 09:22:08 gabapentin 300 mg capsule 2022 023 [id number], [address], [place], [id number], 3 09:22:07 prednisone 10 mg tablet 2022 023 [id number], [address], [place], [id number], 3 09:22:09 Patient TargetsNo targets recorded. Patient Instructions Encounter Date Encounter Id Patient Instructions Last Modified By Organization Details Last Modified Time 03/15/2022 [id number] shingles: care instructions [email or web address] Not available 03/15/2022 09:21:58 Reason for Referral None Reported. 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 Procedures Surgical History Date Name Laterality Status Provider Name and Address Organization Details Recorded Time ileostomy operation completed LAYLA DEPINTO PA - [facility] 03/15/2022 08:40:55 back fusion completed LAYLA DEPINTO PA - [facility] 03/15/2022 08:41:11 hysterectomy completed LAYLA DEPINTO PA - [facility] 03/15/2022 08:41:17 excision of colon completed LAYLA DEPINTO PA - [facility] 03/15/2022 08:41:24 total knee replacement completed LAYLA DEPINTO PA - [facility] 03/15/2022 08:41:36 Imaging Results None recorded. Procedure Notes None recorded. Medical Equipment None Reported. Allergies Allergen ID Allergen Name Allergen Category Reaction Reaction Severity Criticality Documentation Date Start Date Code Code System Note Provider Name and Address Organization Details Recorded Time 173506 peanut allergeni c extract food,medi cation anaphylax is Not available Not available 03/15/2022 79791 8 RxNorm LAYLA DEPINTO null, PA - [facility] 3 08:37:07 869335 adhesive tape environme nt,medica tion rash severe Not available 03/15/2022 79607 UNK LAYLA DEPINTO null, PA - [facility] 3 08:37:23 Medications Name Sig Start Date Stop Date Status Note LastModified by Organization Details LastModified Time Prescription - Renewal active Not Available Not Available Not Available prednisone 10 mg tablet 60 mg po daily x 3 d then 50 mg po daily x 3 d then 40 mg po daily x 3 d then 30 mg po daily x 3 d then 20 mg po daily x 3 d then 10 mg po daily until complete 2022 active Not Available Not Available Not Avai lable valacyclovir 1 gram tablet Take 1 tablet every 8 hours by oral route for 7 days. 2022 active Not Available Not Available Not Avai lable gabapentin 300 mg capsule Take 1 capsule 3 times a day by oral route as needed for 10 days. 2022 active Not Available Not Available Not Avai lable Ambien 10 mg tablet Take 1 tablet by oral route as needed. active Not Available Not Available No t Available lisinopril 5mg active Not Available Not Av ailable Not Available Cymbalta 120mg active Not Available Not Avai lable Not Available bupropion HBr 200mg active Not Available Not Available Not Available Vitals Date Recorded Body height Body mass index (BMI) Body weight Pain severity - 0-10 verbal numeric rating [Score] - Reported Oxygen saturation Oxygen saturation in Arterial blood by Pulse oximetry Heart rate Respiratory rate Body temperature Systolic blood pressure Diastolic blood pressure Provider Name and Address Organization Details Last Updated DateTime 160.02 cm 34.5 kg/m2 80511.5 1 g 8 100 % 100 % 85 /min 18 /min 98.2 [degF] 124 mm[Hg] 77 mm[Hg] LAYLA BERTO [facility] - [facility] 08:42:56 Social History Question Answer Notes LastModified by Organizat ion Details LastModified Time Tobacco Smoking Status Never Smoker LAYLA bennett PA - [facility] 03/15/2022 08:40:14 What Is Your Level Of Alcohol Consumption? None Information not available 03/15/2022 Do You Use Any Illicit Or Recreational Drugs? No Information not available 03/15/2022 Have You Recently Traveled Abroad? No Information not available 03/15/2022 Do You Or Have You Ever Used Any Other Forms Of Tobacco Or Nicotine? No Information not available 03/15/2022 Sex: Unknown Functional Status None recorded. Mental Status None recorded. Family History Relationship Description Onset Age of this Age Resolved Age Notes LastModified by Organization Details LastModified Time Father Heart disease Not available 2022 08:40:02 Mother Renal failure syndrome Not available 2022 08:40:08 Medical History No medical history recorded. Gynecological HistoryNo gynecological history recorded. Obstetrics History GPAL:G 0 P 0 0 0 0 Immunizations Vaccine Type Date Status Note Provider Nam e and Address Organization Details Recorded Time Influenza, high-dose, quadrivalent, PF 1 completed LAYLA DEPINTO null, PA - [facility] 03/15/2022 08:36:45 COVID-19, mRNA, LNP-S, PF, 30 mcg/0.3 mL dose 2 completed LAYLA DEPINTO null, PA - [facility] 03/15/2022 08:36:45 COVID-19, mRNA, LNP-S, PF, 30 mcg/0.3 mL dose 1 completed LAYLA DEPINTO null, PA - [facility] 03/15/2022 08:36:45 COVID-19, mRNA, LNP-S, PF, 30 mcg/0.3 mL dose 1 completed LAYLA DEPINTO null, PA - [facility] 03/15/2022 08:36:45 COVID-19, mRNA, LNP-S, bivalent, PF, 50 mcg/0.5 mL or 25mcg/0.25 mL dose 2 completed LAYLA DEPINTO null, PA - [facility] 03/15/2022 08:36:45 Influenza, split virus, trivalent, preservative 2 completed LAYLA DEPINTO null, PA - [facility] 03/15/2022 08:36:45 Past Encounters Encounter ID Performer Location Encounter Start Date Encounter Closed Date Diagnosis/Indication Diagnosis SNOMED-CT Code Diagnosis ICD10 Code Diagnosis Note [id number] [address] [place] [address] 03/16/2017 13:16:29 03/16/2017 15:04:17 [id number] [address] [place] [address] 04/03/2021 10:20:27 04/03/2021 10:50:56 [id number] Danielito Anthony DO [address] [facility] [place] [address] 03/15/2022 08:12:31 03/15/2022 09:29:08 Herpes zoster 8527093 B02.9 rash c/w shinglesst art antiviralg iven immunocomp romise Rx prednisone as welltyleno l 1 g q 8 h prn [place]ab[place] tin prn painreview ed with patient potential adverse side effects of the medication . advised that she f/u with her PCP in 1 week and contact her imune specialist The patient responsibl e were advised of the risks/ benefits of transfer to the ER for further evaluation / treatment, including but not limited to the possibilit y of serious medical consequenc es up to including , and have refused the recommenda tion. Health Concerns Section Related Observation LastModified by Organization Detai ls LastModified Time None Recorded Concern Status LastModified by Organization Details LastModified Time None Recorded Advance Directives Directive None Recorded Payers Encounter Date Sequence Insurance Name Policy Number Policy Cleaning Covered Member ID Cleaning Member ID Guarantor Name 03/16/2017 1 [place] [employer] Sue Fletcher [id number] Sue Fletcher 04/03/2021 2 [place] [id number] Sue Fletcher [id number] Sue Fletcher 04/03/2021 1 [place] [employer] Sue Fletcher [id number] Sue Fletcher 03/15/2022 2 [place] [id number] Sue Fletcher [id number] Sue Fletcher 03/15/2022 1 [place] [employer] Sue Fletcher [id number] Sue Fletcher Notes Date Note Type Note Provider Name and Address Organization Details Recorded Time 03/15/2022 text/html UC Rash/Skin LesionReported bypatient.Notes:rash on lower back x 2.5 wks (02/24/21)+ some pain, burning and sometimes stabbing pain recently Rx'd Zpack - has had this beforeeno other new meds no f/c/n/v uses soapDenies any new pets, foods, supplements, soaps, detergents, hygeine products etcno known biteshas not been outside, near [place] or near [place]/tick sources no fatigueno myalgia no known sick contactstried with out improvement Danielito Anthony, DO [address] [place], [address], PA - [facility] 03/15/2022 09:23:50 OBGyn Episode No OBEpisode recorded.
== END 2024-04-20 09:41 | disposition home or self-care (01) ==
PROVIDERS: PCP Internal Medicine; Visit Provider Orthopaedic Surgery
DX: M25.561 Pain in right knee (principal); M54.50 Low back pain, unspecified; M79.604 Pain in right leg
CPT/HCPCS: 99213

== ENCOUNTER → 2024-04-20 09:14 | Outpatient (BNV) | payer MEDICARE, SELFPAY | PROVIDERS: PCP Internal Medicine; Visit Provider Radiology Diagnostic Radiology | DX: M54.50 Low back pain, unspecified (principal); M51.369 Other intervertebral disc degeneration, lumbar region without mention of lumbar back pain or lower extremity pain; M25.561 Pain in right knee | CPT/HCPCS: 72100; 73562 ==